=== PATIENT | male | born 1940 | race Caucasian/White ===

== ENCOUNTER 2017-12-26 03:01 | Emergency (ER) | payer OTHER, MEDICAID ==
[~2017-12-26] VITALS: Ht 180.3 cm; Wt 89.5 kg
[2017-12-26 03:07] VITALS: Ht 180.3 cm; Wt 89.5 kg
[2017-12-26 04:17] VITALS: BP 135/61
== END 2017-12-26 04:17 | disposition home or self-care (01) ==
LOC: ED 03:01
DX: R33.9 Retention of urine, unspecified (principal); I10 Essential (primary) hypertension; E11.9 Type 2 diabetes mellitus without complications; Z88.1 Allergy status to other antibiotic agents